=== PATIENT | female | born 1990 | race Caucasian/White ===

== ENCOUNTER 2023-10-07 21:09 | Emergency (ER) | payer MEDICAID, OTHER ==
[~2023-10-07] VITALS: Ht 162.6 cm; Wt 65.8 kg
[2023-10-07 21:16] VITALS: BP 123/83; PULSE 65; RESP 16; TEMP 98.7; O2SAT 99
[2023-10-07] MEDS ORDERED: KETOROLAC 60 MG/2 ML VIAL IM ONE (21:20)
[2023-10-07 21:40] VITALS: O2SAT 97
[2023-10-07] MEDS ORDERED: IBUP-2218 PO (23:46)
[2023-10-07] MEDS ORDERED: CYCL-711 PO (23:46)
[2023-10-07] MEDS ORDERED: ACET-10509 PO (23:46)
== END 2023-10-07 23:59 | disposition home or self-care (01) ==
LOC: MED 21:09
DX: S39.012A Strain of muscle, fascia and tendon of lower back, initial encounter (principal); X58.XXXA Exposure to other specified factors, initial encounter; Y93.89 Activity, other specified; Y92.89 Other specified places as the place of occurrence of the external cause; Y99.8 Other external cause status
CPT/HCPCS: 72100; 81025; 96372; 99283; J1885